=== PATIENT | male | born 1950 | race Caucasian/White ===

== ENCOUNTER → 2017-11-15 | Outpatient (CLI) | payer OTHER | END | disposition home or self-care (01) | LOC: KCIC 13:23 | DX: R91.8 Other nonspecific abnormal finding of lung field (principal) | CPT/HCPCS: 71046 ==

== ENCOUNTER → 2018-08-20 | Outpatient (CLI) | payer MEDICARE, OTHER ==
--- NOTE | 2018-08-20 15:09 | KCIC ---
EXAM: Right wrist, 3 views. HISTORY: Pain. COMPARISON: None. FINDINGS: 3 views right wrist are obtained. There is no acute fracture, dislocation or subluxation. There is minimal chondrocalcinosis. There is minimal radiocarpal joint space narrowing with suspected degenerative subchondral cyst formation involving the scaphoid and distal radial metaphysis. 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 IMPRESSION: 1. No acute osseous finding. 2. 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 3. 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 Electronically signed by: Noa Mueller MD (08/20/2018 3:06 PM) [id number]
== END | disposition home or self-care (01) ==
LOC: KCIC 13:22
PROVIDERS: ATTEND Family Medicine
DX: M19.031 Primary osteoarthritis, right wrist (principal); M11.231 Other chondrocalcinosis, right wrist
CPT/HCPCS: 73110